=== PATIENT | female | born 1965 | race Caucasian/White ===

== ENCOUNTER 2017-10-03 17:45 | Inpatient (IN) | payer MEDICAID ==
[~2017-10-03] VITALS: Ht 162.6 cm; Wt 93.0 kg
[2017-10-03 17:50] VITALS: BP 187/88
--- NOTE | 2017-10-03 19:18 | NUR ---
PT TAKEN TO BED 1
[2017-10-03] MEDS ORDERED: ONDANSETRON 4 MG ODT PO ONE (19:25)
--- NOTE | 2017-10-03 19:26 | NUR ---
PT DENIES N/V/D; SKIN IS INTACT, PINK/WARM/DRY; AAOX4, PERRL, WITH UNSTEADY GAIT D/T DIZZINESS SINCE BEING DC'D THE ; LUNGS CLEAR BL, BREATHING UNLABORED; HR EVEN AND REGULAR, BL PERIPHERAL PULSES PRESENT; BS ACTIVE X4, NO TENDERNESS TO PALPATION, NO HEPATOSPLENOMEGALLY PALPATED, RESONANT TO PERCUSSION; PT DENIES ANY FEVER, CP, SOB, OR COUGH AT THIS TIME; PT STATES 0/10 PAIN AT THIS TIME; VSS; PATIENT POSITIONED FOR COMFORT; HOB ELEVATED; BEDRAILS UP X2; BED DOWN.
--- NOTE | 2017-10-03 19:46 | NUR ---
EKG PERFORMED AT BEDSIDE, PT COVERED MODESTLY WITH GOWN AND BLANKET
--- NOTE | 2017-10-03 20:30 | NUR ---
Dr. Curran evaluating patient at bedside.
--- NOTE | 2017-10-03 21:14 | NUR ---
PT TAKEN TO CT
[2017-10-03 21:49] LABS: BASOPHILS # (AUTO) 0.1 K/uL (0.00-0.22); BASOPHILS % (AUTO) 0.7 % (0.0-2.0); EOSINOPHILS # (AUTO) 0.2 K/uL (0-0.4); EOSINOPHILS % (AUTO) 1.7 % (0.0-4.0); HEMOGLOBIN 13.3 g/dL (12.0-16.0); LYMPHOCYTES # (AUTO) 3.1 K/uL (2.5-16.5); LYMPHOCYTES % (AUTO) 29.7 % (20.5-51.1); MEAN CORPUSCULAR HEMOGLOBIN 27 pg (27-31); MEAN CORPUSCULAR HGB CONC 33 g/dL (33-37); MEAN CORPUSCULAR VOLUME 84.4 fL (80-94); MONOCYTES # (AUTO) 0.7 K/uL (0.8-1.0); MONOCYTES % (AUTO) 6.6 % (1.7-9.3); NEUTROPHILS # (AUTO) 6.4 K/uL (1.8-7.7); NEUTROPHILS % (AUTO) 61.3 % (42.2-75.2); PLATELET COUNT (AUTO) 425 K/uL (140-450); RED BLOOD CELL COUNT(AUTO) 4.86 MIL/uL (4.20-5.40); RED CELL DISTRIBUTION WIDTH 14.8 % (11.6-13.7); WHITE BLOOD COUNT (AUTO) 10.4 K/uL (4.8-10.8)
[2017-10-03 22:06] LABS: ANION GAP 10.4 (8-16); CARBON DIOXIDE 31.7 mmol/L (21-32); CREATININE 0.7 mg/dL (0.6-1.3); POTASSIUM 4.1 mmol/L (3.5-5.1)
[2017-10-03 22:12] LABS: ALBUMIN 4.1 g/dL (3.4-5.0); TOTAL BILIRUBIN 0.3 mg/dL (0.0-1.0)
[2017-10-03] MEDS ORDERED: HYDROCHLOROTHIAZIDE PO (23:44)
[2017-10-03] MEDS ORDERED: MECL-272 PO (23:44)
[2017-10-03] MEDS ORDERED: METF1000 PO (23:44)
[2017-10-03] MEDS ORDERED: [UNRECOGNIZED DRUG - OTHER] PO (23:44)
[2017-10-03] MEDS ORDERED: GLIP10TA3 PO (23:44)
[2017-10-03] MEDS ORDERED: LOSARTAN PO (23:44)
[2017-10-03] MEDS ORDERED: GABA300C PO (23:44)
[2017-10-03] MEDS ORDERED: ENALAPRILAT 2.5 MG/2 ML VIAL IVP ONE (23:50)
[2017-10-03] MEDS ORDERED: MORPHINE SULFATE 4 MG/ML SYR IVP ONE (23:50)
[2017-10-04] VITALS (7 sets, daily range): BP systolic 118–159; BP diastolic 47–86
--- NOTE | 2017-10-04 00:20 | NUR ---
IVP MEDS GIVEN-NADR AT THIS TIME. PAIN NOW 3/10 POST IVP MEDS. PT AAOX4 AT THIS TIME, NSR W/O AECT NOTED.
[2017-10-04] MEDS ORDERED: ONDANSETRON 4 MG/2 ML VIAL IVP PRN (00:45)
[2017-10-04] MEDS ORDERED: ZOLPIDEM 5 MG TAB PO PRN (00:45)
--- NOTE | 2017-10-04 00:50 | NUR ---
ALL RESULTS BACK AND NOTED BY ERMD AND FOR ADMISSION
--- NOTE | 2017-10-04 00:57 | NUR ---
Patient will be admitted to care of DR. WHITEHEAD. Admited to [facility] Belongings list completed. .
--- NOTE | 2017-10-04 01:20 | NUR ---
RECEIVED PT FROM ER VIA [facility] PT AAOX4 AMBULATORY WITH INFORMATICA ARCHITECT HL ON LEFT FA PATENT MRSA NAARES PROTOCOL TAKEN AND SENT TO LAB PT IS ;ORIENTED TO THE FLOOR CALL LIGHT WITHIN REACH
[2017-10-04 01:21] LABS: PROTHROMBIN TIME 9.7 secs (10.8-13.4)
[2017-10-04] MEDS: NACL 0.9% 1,000 ML IV SCH (02:04)
[2017-10-04] MEDS ORDERED: DEXTROSE 50% 50 ML SYR IVP PRN (03:30)
--- NOTE | 2017-10-04 04:00 | NUR ---
ORTHOSTATIC BLOOD PRESSURE TAKEN ORDER SEE VITAL SIGN DOCUMENTATION
[2017-10-04 05:39] LABS: FREE T4 (FREE THYROXINE) 1.03 ng/dL (0.76-1.46); MAGNESIUM 2.3 mg/dL (1.8-2.4); PHOSPHORUS 3.5 mg/dL (2.5-4.9); THYROID STIMULATING HORMONE 2.25 uIU/mL (0.34-3.74)
[2017-10-04] MEDS: AMOXICILLIN 500 MG CAP PO SCH ×3 (05:43→20:33)
[2017-10-04] MEDS: BLOOD GLUCOSE MONITORING 1 DEV DEV FS SCH ×4 (06:00→20:45)
--- NOTE | 2017-10-04 06:00 | NUR ---
BLOOD SUGAR TEST 111 PT GETTING SLEEP DENIES ANY PAIN AT THIS TIME
--- NOTE | 2017-10-04 06:45 | NUR ---
PT IS TAKEN TO RADIOLOGY FOR CT HEAD
--- NOTE | 2017-10-04 07:20 | NUR ---
RECEIVED REPORT FROM ELEVATOR ERECTOR RN FOR CONTINUITY OF CARE. PT IS A/OX4. PATIENT JUST CAME BACK FROM CT. WILL WAIT FOR THOSE RESULTS. RESPIRATIONS EVEN AND UNLABORED ON ROOM AIR. PT SKIN IS INTACT. PT HAS 22G IV TO LEFT FOREARM, ASYMPTOMATIC, INTACT AND PATENT INFUSING NS @ 10 ML/HR WELL. PT STABLE, NO SIGNS OF DISTRESS NOTED AT THIS TIME. UPDATED BOARD. SAFETY PRECAUTION IN PLACE, BED IN LOWEST POSITION, CALL LIGHT WITHIN REACH, WILL CONTINUE TO MONITOR PATIENT.
[2017-10-04 07:48] LABS: CHOL/HDL RATIO 5.6 (1-4.5)
[2017-10-04] MEDS: HYDROCHLOROTHIAZIDE 25 MG TAB PO SCH (08:56)
[2017-10-04] MEDS: LOSARTAN 50 MG TAB PO SCH (08:56)
[2017-10-04] MEDS: GABAPENTIN 300 MG CAP PO SCH ×2 (08:56→20:34)
[2017-10-04] MEDS: LACTOBACILLUS RHAMNOSUS GG 1 EACH CAP PO SCH ×3 (08:57→16:42)
[2017-10-04] MEDS: glipiZIDE 10 MG TAB PO SCH (08:58)
[2017-10-04] MEDS: DOCUSATE SODIUM 100 MG GELCAP PO SCH ×2 (08:58→20:33)
--- NOTE | 2017-10-04 08:58 | NUR ---
ORDERED MEDICATION GIVEN. PATIENT TOLERATED IT WELL. PATIENT C/O OF HEADACHE, PATIENT MEDICATED FOR PAIN ORDERED. PATIENT REQUESTED TO SPEAK TO FUNERAL DIRECTOR'S ASSISTANT. RN CALLED. NO ANSWER. WILL FOLLOW UP LATER.
[2017-10-04] MEDS: ATORVASTATIN 20 MG TAB PO SCH (08:59)
[2017-10-04] MEDS: metFORMIN 500 MG TAB PO SCH ×2 (08:59→16:42)
[2017-10-04] MEDS: ACETAMINOPHEN 325 MG TAB PO PRN ×2 (08:59→16:42)
[2017-10-04] MEDS ORDERED: LOSARTAN HCTZ PO SCH (09:00)
[2017-10-04] MEDS ORDERED: [UNRECOGNIZED DRUG - OTHER] PO SCH (09:00)
[2017-10-04] MEDS: MECLIZINE 25 MG TAB PO PRN ×2 (10:01→17:19)
--- NOTE | 2017-10-04 10:05 | NUR ---
PATIENT REQUESTED FOR ANTIVERT. MEDICATION GIVEN ORDERED. NO SIGNS OF DISTRESS OR SOB NOTED ON ROOM AIR AT THIS TIME. PATIENT RESTING COMFORTABLY IN BED, SAFETY PRECAUTION IN PLACE, CALL LIGHT WITHIN REACH, WILL CONTINUE TO MONITOR PATIENT.
[2017-10-04] MEDS ORDERED: methylPREDNISolone SS 125 MG/2 ML VIAL IVP SCH (11:00)
[2017-10-04] MEDS ORDERED: MULTIVITAMIN 1 TAB PO SCH (11:00)
--- NOTE | 2017-10-04 11:03 | NUR ---
PATIENT HAS BEEN SCREENED AND CATEGORIZED MODERATE NUTRITION RISK. PATIENT WILL BE SEEN WITHIN 3-5 DAYS OF ADMISSION. 10/06/17 -10/08/[address]
--- NOTE | 2017-10-04 12:02 | NUR ---
ORDERED MEDICATION GIVEN. PATIENT TOLERATED IT WELL. WILL CONTINUE TO MONITOR PATIENT.
--- NOTE | 2017-10-04 13:09 | NUR ---
ORDERED MEDICATION GIVEN. PATIENT TOLERATED IT WELL. PATIENT STATES THAT LINGERING HEADACHE IS TOLERABLE. WILL CONTINUE TO MONITOR PATIENT.
--- NOTE | 2017-10-04 13:20 | NUR ---
ORDERED MEDICATION GIVEN. PATIENT TOLERATED IT WELL. MICHAEL FROM [facility] IN TO SPEAK TO THE PATIENT. PATIENT C/O OF HEADACHE, INFORMED HER TYLENOL DUE AT 1500 AND ASKED IF SHE WOULD LIKE FOR RN TO SPEAK TO DOCTORS ABOUT OTHER PAIN MEDICATION OPTIONS. PATIENT STATED "LET'S WAIT AND SEE". RN VERBALIZED UNDERSTANDING.
--- NOTE | 2017-10-04 15:41 | NUR ---
SPOKE WITH JOANNE AT [facility] . SHE SAID TO FAX REVIEW TO HER AT [phone] PHONE JOANNE [phone]. [facility]
--- NOTE | 2017-10-04 16:42 | NUR ---
ORDERED MEDICATIONS GIVEN. PATIENT ASKING FOR TYLENOL FOR HEADACHE. TYLENOL GIVEN. PATIENT TOLERATING IT WELL. WILL CONTINUE TO MONITOR PATIENT.
[2017-10-04] MEDS: INSULIN LISPRO SLIDING SCALE 100 UNITS/ML VIAL SUBQ PRN ×2 (17:22→20:48)
--- NOTE | 2017-10-04 17:22 | NUR ---
BLOOD SUGAR 209, COVERAGE GIVEN. PATIENT ALSO REQUESTED FOR ANTIVERT. MEDICATION GIVEN. PATIENT TOLERATED IT WELL. PATIENT CURRENTLY EATING DINNER. SAFETY PRECAUTION IN PLACE, CALL LIGHT WITHIN REACH, WILL CONTINUE TO MONITOR PATIENT.
--- NOTE | 2017-10-04 18:45 | NUR ---
PATIENT C/O HEADACHE RADIATING TO BACK LEFT SHOULDER BLADE AND DOWN CHEST. PATIENT MEDICATED WITH TYLENOL AT 1642. PATIENT REQUESTING PAIN MEDICATION. INFORMED DR. AGUILERA. NEW ORDERS IN FOR FIORICEPT. INFORMED PATIENT ABOUT MEDICATION. WILL MEDICATE ONCE PHARMACY VERIFIES MEDICATION. MEDICATION NOT IN [facility], PHARMACY CALLED, THEY SAID THEY WILL BRING IT TO THE FLOOR. RN VERBALIZED UNDERSTANDING.
[2017-10-04] MEDS: APAP/BUTAL/CAFF 325/50/40 MG 1 TAB PO PRN (18:55)
--- NOTE | 2017-10-04 18:55 | NUR ---
FIORICEPT GIVEN ORDERED FOR PATIENT'S HEADACHE. PATIENT TOLERATING IT WELL. PATIENT ALSO C/O OF FEELING HOT AND FEVERISH. ORAL TEMPERATURE TAKEN, 97.8. OFFERED PATIENT ICE PACK. PATIENT ACCEPTED. ICE PACK GIVEN. WILL CONTINUE TO MONITOR PATIENT.
--- NOTE | 2017-10-04 19:23 | NUR ---
REPORT GIVEN AT BEDSIDE FOR CONTINUITY OF CARE TO GRAPHIC MANAGER NURSE. PATIENT IN STABLE CONDITION. SISTER VASYL AT BEDSIDE. Addendum: 10/04/17 at 1934 by Corey Russo RN ENDORSED PAIN REASSESSMENT AT 1954 TO GRAPHIC MANAGER NURSE.
--- NOTE | 2017-10-04 19:25 | NUR ---
RECEIVED PT IN STABLE CONDITION FROM AM NURSE. AWAKE,ALERT AND ORIENTED X4. MED SURG PT. WITH FAMILY MEMBER AT BEDSIDE. STILL C/O HEAD ACHE BUT JUST MEDICATED BY AM NURSE. IVF INFUSING WELL ON THE LEFT WRIST #22. CLEAR AND PATENT. PLAN OF CARE DISCUSSED AND VERBALIZED UNDERSTANDING. BED ON LOW POSITION, CALL LIGHT PLACED WITHIN EASY REACH. WILL CONTINUE TO MONITOR.
[2017-10-04] MEDS: methylPREDNISolone SS 125 MG/2 ML VIAL IVP SCH (20:33)
--- NOTE | 2017-10-04 20:48 | NUR ---
CORRECTION: ON BLOOD SUGAR RESULT 247 . INSULIN COVERAGE 4 UNITS HUMALOG GIVEN SUB Q. PROVIDED WITH SOME SNACK. WILL CONTINUE TO MONITOR.
[2017-10-05] MEDS: APAP/BUTAL/CAFF 325/50/40 MG 1 TAB PO PRN ×3 (00:32→12:23)
--- NOTE | 2017-10-05 00:32 | NUR ---
PT C/O SEVERE HEADACHE. MEDICATED ORDERED. WILL CONTINUE TO MONITOR.
[2017-10-05] MEDS: NACL 0.9% 1,000 ML IV SCH (02:00)
--- NOTE | 2017-10-05 02:33 | NUR ---
PT GOT UP TO THE BATHROOM. NO C/O ANY DISCOMFORT NOTED. WILL CONTINUE TO MONITOR.
[2017-10-05] MEDS: AMOXICILLIN 500 MG CAP PO SCH ×2 (04:39→12:21)
[2017-10-05 05:57] LABS: BASOPHILS % (AUTO) 0.1 % (0.0-2.0); HEMATOCRIT 38.1 % (36-48); HEMOGLOBIN 12.4 g/dL (12.0-16.0); LYMPHOCYTES # (AUTO) 0.9 K/uL (2.5-16.5); LYMPHOCYTES % (AUTO) 7.5 % (20.5-51.1); MEAN CORPUSCULAR HEMOGLOBIN 27 pg (27-31); MEAN CORPUSCULAR HGB CONC 33 g/dL (33-37); MEAN CORPUSCULAR VOLUME 83.6 fL (80-94); MONOCYTES # (AUTO) 0.2 K/uL (0.8-1.0); MONOCYTES % (AUTO) 1.5 % (1.7-9.3); NEUTROPHILS # (AUTO) 10.6 K/uL (1.8-7.7); NEUTROPHILS % (AUTO) 90.9 % (42.2-75.2); PLATELET COUNT (AUTO) 369 K/uL (140-450); RED BLOOD CELL COUNT(AUTO) 4.56 MIL/uL (4.20-5.40); RED CELL DISTRIBUTION WIDTH 14.2 % (11.6-13.7); WHITE BLOOD COUNT (AUTO) 11.7 K/uL (4.8-10.8)
[2017-10-05] MEDS: BLOOD GLUCOSE MONITORING 1 DEV DEV FS SCH ×2 (06:13→11:51)
[2017-10-05] MEDS: INSULIN LISPRO SLIDING SCALE 100 UNITS/ML VIAL SUBQ PRN ×2 (06:16→11:50)
--- NOTE | 2017-10-05 06:16 | NUR ---
BLOOD SUGAR WAS CHECKED RESULT 314. INSULIN COVERAGE GIVEN SUBQ.
[2017-10-05 06:45] LABS: ANION GAP 12.5 (8-16); CREATININE 0.9 mg/dL (0.6-1.3); POTASSIUM 4.5 mmol/L (3.5-5.1)
[2017-10-05 06:46] LABS: MAGNESIUM 2.2 mg/dL (1.8-2.4); PHOSPHORUS 3.7 mg/dL (2.5-4.9)
--- NOTE | 2017-10-05 07:00 | NUR ---
PT AMBULATED TO THE HALLWAY WITH NO DIZZINESS NOTED.
--- NOTE | 2017-10-05 07:20 | NUR ---
ENDORSED PT IN STABLE CONDITION TO AM NURSE.
--- NOTE | 2017-10-05 07:25 | NUR ---
RECEIVED PT FROM EMT BASIC NURSE, PT IS AWAKE AND SEATED ON THE BED, SIDE RAILS ARE UP AND CALL LIGHT WITHIN REACH. PT HAS AN IV LINE ON THE LEFT WRIST G.22 NS AT 10ML/HR, INTACT AND PATENT. PT VERBALIZED THAT SHE WANTED TO SPEAK WITH A FRONT OFFICE AGENT AND TOLD PT THAT IT WILL BE RELAYED AND INFORM THE FRONT OFFICE AGENT AND PT VERBALIZED UNDERSTANDING. NO SIGN OF DISTRESS NOTED AND WILL CONTINUE TO MONITOR.
[2017-10-05 08:00] VITALS: BP 163/75
--- NOTE | 2017-10-05 08:05 | NUR ---
DR. MIX CAME TO THE PT'S ROOM AND SPOKE TO THE PT. DR. MIX DID A NEURO ASSESSMENT TO THE PT AND PT IS COMPLIANT AND RESPONDING APPROPRIATELY TO THE DOCTOR.
[2017-10-05] MEDS: DOCUSATE SODIUM 100 MG GELCAP PO SCH (08:24)
--- NOTE | 2017-10-05 08:24 | NUR ---
PT IS AWAKE AND SEATED ON THE BED, VITAL SIGNS TAKEN AND BP RESULT IS HIGH, 174/65, MEDICATIONS GIVEN AND PT TOLERATED IT. WILL RE-ASSESS BP AND NO OTHER UNTOWARD SIGNS NOTED.
[2017-10-05] MEDS: metFORMIN 500 MG TAB PO SCH (08:26)
[2017-10-05] MEDS: GABAPENTIN 300 MG CAP PO SCH ×2 (08:26→12:21)
[2017-10-05] MEDS: LOSARTAN 50 MG TAB PO SCH (08:27)
[2017-10-05] MEDS: LACTOBACILLUS RHAMNOSUS GG 1 EACH CAP PO SCH ×2 (08:28→11:57)
[2017-10-05] MEDS: ACETAMINOPHEN 325 MG TAB PO PRN (08:28)
[2017-10-05] MEDS: glipiZIDE 10 MG TAB PO SCH (08:28)
[2017-10-05] MEDS: ATORVASTATIN 20 MG TAB PO SCH (08:28)
[2017-10-05] MEDS: HYDROCHLOROTHIAZIDE 25 MG TAB PO SCH (08:29)
[2017-10-05] MEDS: methylPREDNISolone SS 125 MG/2 ML VIAL IVP SCH (08:30)
--- NOTE | 2017-10-05 08:47 | NUR ---
DR. GARVIN CAME TO THE PT'S ROOM AND TOLD THE PT THAT SHE WILL BE SENT TO A DIFFERENT FACILITY TO HAVE AN MRI DONE TO HER, PT VERBALIZED UNDERSTANDING.
[2017-10-05] MEDS ORDERED: MULTIVITAMIN 1 TAB PO SCH (09:00)
--- NOTE | 2017-10-05 09:58 | NUR ---
NELIA FROM LAB CALLED AND REPORTED THAT THE PT IS POSITIVE FOR MRSA OF NARES. ACKNOWLEDGED AND WILL INFORM THE DOCTOR.
--- NOTE | 2017-10-05 10:05 | NUR ---
INFORMED DR. GARVIN OF THE CRITICAL LAB RESULT OF THE PT FOR BEING POSITIVE FOR MRSA OF NARES. DR. GARVIN ACKNOWLEDGED.
--- NOTE | 2017-10-05 11:02 | NUR ---
FAXED CONCURRENT REVIEW TO [facility] PHYSICIAN [phone] PHONE JOANNE [phone] [facility] AND INFORMED HER THAT THIS PATIENT NEEDED AN MRI OF BRAIN. SHE SAID SHE WOULD TRY TO GET A BED AT [facility]. SHE ASKED THAT OUR PHYSICIAN CALL THEIR PHYSICIAN, DR. HENNA VICENTE AT [phone]. [address] GARVIN.. DR. GARVIN CALLED BACK AND SAID HE SPOKE WITH DR. VICENTE AND THEY WILL LOOK FOR A BED AT [facility] UNDER [address] ALVARADO, ON TELEMETRY. I CALLED JOANNE AT [facility] AND LEFT A MESSAGE.
--- NOTE | 2017-10-05 11:30 | NUR ---
SPOKE TO DARIELA OF PHARMACY REGARDING THE PT'S ASPIRIN. DARIELA WAS INFORMED THAT THE PT HAD BEEN TAKING THE ASPIRIN FOR TWO MONTHS NOW AND NO ALLERGIC SINGS HAD BEEN NOTED. PT VERBALIZED THAT SHE IS TAKING 81MG OF ASPIRIN ONCE DAILY AND NO ALLERGIC REACTION HAD OCCURRED ON HER.
--- NOTE | 2017-10-05 11:43 | NUR ---
JOANNE FROM [facility] PHYSICIAN CALLED. THE PATIENT WILL GO TO [facility], [address]. SHE WILL GO TO A TELEMETRY BED UNDER [address]. ROOM 101A CALL REPORT TO [phone]. I INFORMED [employer] URIARTEINSTRUCTIONAL SUPPORT ASSISTANT NURSE AND ART URIARTE. AUTH FOR ALS [facility] IS [id number]. I CALLED [facility] AND SET UP ALS TRANSPORT FOR 1P.M. I INFORMED ART URIARTE AND DR. GARVIN. I SPOKE WITH THE PATIENT AND INFORMED HER. SHE ASKED ME IF SHE COULD GO TO A CLOSER HOSPITAL. I SPOKE WITH JOANNE AT THE [facility] AND SHE SAID THE PATIENT IS CAPITATED TO THAT HOSPITAL, ALVAR[place]O. THE PATIENT WAS INFORMED.
[2017-10-05] MEDS ORDERED: ECOTRIN 81 MG TABEC PO SCH (11:45)
--- NOTE | 2017-10-05 11:45 | NUR ---
REGINO FROM CASE MANAGEMENT CALLED AND REPORTED THAT THE PT WILL BE TRANSFERRED TO [facility] UNDER THE SERVICE OF DR. Cathy ALVARADO IN ROOM 101-A ON A TELE BED. ACKNOWLEDGED REPORT AND WILL FOLLOW THROUGH.
--- NOTE | 2017-10-05 12:26 | NUR ---
CALLED [facility] AND GAVE REPORT TO AUBRIE URIARTE REGARDING THE PT. AND AUBRIE URIARTE VERBALIZED UNDERSTANDING AND ACKNOWLEDGED REPORT GIVEN.
--- NOTE | 2017-10-05 13:00 | NUR ---
DISCHARGED PT VIA GURNEY WITH THE TRANSPORT PERSONNEL. PT WILL BE TRANSFERRED TO [facility] AND BE PLACED IN RM 101-A UNDER THE SERVICE OF DR. Cathy ALVARADO. REPORT GIVEN TO TRANSPORT PERSONNEL REGARDING THE PT. DISCHARGED INSTRUCTIONS AND TEACHINGS GIVEN TO PT AND PT VERBALIZED UNDERSTANDING. IV LINE AND ARM BAND REMOVED. PT IS STABLE AT HIS TIME.
[2017-10-06] MEDS ORDERED: methylPREDNISolone SS 40 MG/ML VIAL IVP SCH (09:00)
[2017-10-06] MEDS ORDERED: ECOTRIN 81 MG TABEC PO SCH (09:00)
== END 2017-10-05 13:00 | disposition short-term general hospital (02) | DRG 111 ==
LOC: MED 17:45 → MTU 10-04 00:57
PROVIDERS: ADMIT General Practice; ATTEND General Practice
DX: H81.13 Benign paroxysmal vertigo, bilateral (principal); D68.59 Other primary thrombophilia; E11.40 Type 2 diabetes mellitus with diabetic neuropathy, unspecified; E11.51 Type 2 diabetes mellitus with diabetic peripheral angiopathy without gangrene; G90.9 Disorder of the autonomic nervous system, unspecified; E11.65 Type 2 diabetes mellitus with hyperglycemia; M31.6 Other giant cell arteritis; H66.92 Otitis media, unspecified, left ear; E66.9 Obesity, unspecified; Z68.34 Body mass index [BMI] 34.0-34.9, adult; Z66 Do not resuscitate; Z80.9 Family history of malignant neoplasm, unspecified; H53.2 Diplopia
CPT/HCPCS: 36415; 70450; 70486; 71045; 80048; 80053; 82150; 82948; 83036; 83690; 83735; 83880; 84100; 84439; 84443; 84484; 85025; 85610; 85651; 85730; 87081; 93005; 93880; 93925; 93970; 96374; 96375; 99285; J2270; J2930; J3490; J7030; J8597; Q0092; S0119